=== PATIENT | female | born 1930 | race Caucasian/White ===

== ENCOUNTER 2019-04-23 10:35 | Emergency (ER) | payer BC, MEDICARE ==
[~2019-04-23] VITALS: Ht 152.4 cm; Wt 46.3 kg
--- NOTE | 2019-04-23 11:36 | NUR ---
RADIOLOGY AT BEDSIDE FOR CXR AT THIS TIME.
--- NOTE | 2019-04-23 11:38 | NUR ---
BEDSIDE PACEMAKER INTERROGATION BEING PERFORMED AT THIS TIME.
--- NOTE | 2019-04-23 12:22 | NUR ---
PLACING CALL TO [facility] AT THIS TIME.
[2019-04-23 12:25] LABS: BASOPHILS % 0.3 % (0.0-1.0); EOSINOPHILS # (AUTO) 0.1 (0.0-0.4); EOSINOPHILS % 0.9 % (0.0-6.0); HEMATOCRIT 35.7 % (34.2-44.1); HEMOGLOBIN 11.1 g/dL (12.0-16.0); LYMPHOCYTES # (AUTO) 0.6 (1.0-3.2); LYMPHOCYTES % 5.2 % (18.0-39.1); MEAN CORPUSCULAR HEMOGLOBIN 30.8 pg (28-32); MEAN CORPUSCULAR HGB CONC 31.1 g/dL (31-35); MEAN CORPUSCULAR VOLUME 99.2 fL (81-99); MONOCYTES # (AUTO) 0.5 (0.2-0.8); MONOCYTES % 4.6 % (4.4-11.3); NEUTROPHILS # (AUTO) 9.6 (2.1-6.9); NEUTROPHILS % 87.6 % (38.7-80.0); PLATELET COUNT 167 x10e3/uL (140-360); RED CELL DISTRIBUTION WIDTH 12.9 % (11.7-14.4)
--- NOTE | 2019-04-23 12:30 | NUR ---
SPOKE WITH STUART, [employer]ER AT [employer] TO HAVE TECH COME OUT STAT FOR EVALUATION OF IMPLANTED DEVICES- PACEMAKER AND DEFIBRILATIOR.
--- NOTE | 2019-04-23 12:35 | NUR ---
SPOKE WITH REYMUNDO, FROM [facility] [place], UNABLE TO PROVIDE AN ETA, BUT WILL HAVE TECH COME OUT STAT. INFORMED DR. DIAMOND.
[2019-04-23 12:36] LABS: ALBUMIN 3.8 g/dL (3.5-5.0); ALBUMIN/GLOBULIN RATIO 1.5 (0.8-2.0); CALCIUM 9.2 mg/dL (8.4-10.2); CREATININE, SERUM 1.6 mg/dL (0.57-1.11)
--- NOTE | 2019-04-23 12:45 | NUR ---
UPDATED FAMILY AT BEDSIDE ON PLAN OF CARE, VOICING CONERNS WITH ETA FROM [employer] TECH. SON STATES "NORMALLY MOM CAN GO TO HER PCP IN [place] AND THEY DO IT RIGHT THEN AND THERE". INFORMED SON IN REGARDS TO UNKNOWN ETA FOR STAT CALL PER [facility] TE[facility].
[2019-04-23 12:46] LABS: CREATINE KINASE MB 1.6 ng/mL (0-5.0)
--- NOTE | 2019-04-23 12:59 | Diagnostic Imaging Report ---
EXAMINATION: CHEST SINGLE (PORTABLE) INDICATION: Palpitations. COMPARISON: None FINDINGS: TUBES and LINES: Two left-sided AICD devices with leads overlying the right atrium, coronary sinus, and right ventricle. LUNGS: Lungs are hyperinflated. There is no evidence of pneumonia or pulmonary edema. PLEURA: No pleural effusion or pneumothorax. HEART AND MEDIASTINUM: The cardiomediastinal silhouette is unremarkable. There are atherosclerotic calcifications within the aorta. BONES AND SOFT TISSUES: No acute osseous abnormality. UPPER ABDOMEN: No free air under the diaphragm. IMPRESSION: No acute radiographic abnormality. Signed by: Dr. Virgilio Chery MD on 04/23/2019 12:56 PM
--- NOTE | 2019-04-23 13:40 | NUR ---
SPOKE WITH REYMUNDO, DISPATCHER FOR [employer]. [employer] TECH IS ON THE WAY TO EVALUATE PT, STILL UNABLE TO GIVE AN ETA. UPDATING FAMILY AT THIS TIME.
--- NOTE | 2019-04-23 14:15 | NUR ---
[facility] TECH MITCHEL AT BEDSIDE AT THIS TIME FOR PT EVAL. FAMILY AT BEDSIDE.
--- NOTE | 2019-04-23 14:40 | NUR ---
PER [facility] TECH, IMPLANTED DEVICES FUNCTIONING WELL. RESULTS PLACED ON CHART AND GIVEN TO DR. DIAMOND FOR EVAL AT THIS TIME.
[2019-04-23 15:09] VITALS: BP 118/52
== END 2019-04-23 15:10 | disposition home or self-care (01) ==
LOC: ER 10:35
DX: R00.2 Palpitations (principal)
CPT/HCPCS: 36415; 71045; 80053; 82550; 82553; 84484; 85025; 93005; 99284